=== PATIENT | male | born 1975 ===

== ENCOUNTER 2018-10-01 18:22 | Emergency (ER) | payer OTHER ==
[2018-10-01 18:32] VITALS: BP 137/82
--- NOTE | 2018-10-01 18:41 | UC ---
Skin Complaint HPI - HPI Summary HPI Summary: L hip has large splinter after pt. slid on hardwood floor. Pt unable to remove it. - History of Current Complaint Chief Complaint: UCSkin Time Seen by Provider: 10/01/18 18:26 Stated Complaint: SOFT TISSUE Hx Obtained From: Patient Onset/Duration: Sudden Onset Pain Intensity: 2 Pain Scale Used: 0-10 Numeric Aggravating Factor(s): Touch Alleviating Factor(s): Nothing - Allergy/Home Medications Allergies/Adverse Reactions: Allergies Allergy/AdvReac Type Severity Reaction Status Date / Time No Known Allergies Allergy Verified 10/01/18 18:32 PMH/Surg Hx/FS Hx/Imm Hx Previously Healthy: Yes - Surgical History Surgical History: Yes Surgery Procedure, Year, and Place: inguinal hernia repair - Social History Alcohol Use: Occasionally Substance Use Type: None Smoking Status (MU): Never Smoked Tobacco - Immunization History Most Recent Tetanus Shot: 08/07/2014 Review of Systems All Other Systems Reviewed And Are Negative: Yes Constitutional: Positive: Negative Skin: Positive: Other - Pain at site of splinter Physical Exam Triage Information Reviewed: Yes Appearance: Well-Appearing Vital Signs: Initial Vital Signs Temp 97.7 F 10/01/18 18:27 Pulse 76 10/01/18 18:27 Resp 16 10/01/18 18:27 BP 137/82 10/01/18 18:27 Pulse Ox 96 10/01/18 18:27 Vital Signs Reviewed: Yes Skin: Positive: Other - L hip had a 1 in. somewhat deep splinter but able to be palpated externally. Was able to clean area, drape and inj. lidocaine to be able to remove splinter. Edges had to be cut minimally and Dr. Matos was able to finally remove large splinter whole. Course/Dx - Course Course Of Treatment: Left hip approx 1 in. piece of wood underneath skin. Able to palpate just superficially. Removed.Area was then cleaned and dressed. Empiric tx of skin infxn rx'd. - Differential Diagnoses - Skin Complaint Differential Diagnoses: Foreign Body - Diagnoses Provider Diagnosis: Foreign body in skin, Hip pain, left Discharge - Sign-Out/Discharge Documenting (check all that apply): Patient Departure All imaging exams completed and their final reports reviewed: No Studies - Discharge Plan Condition: Good Disposition: HOME Prescriptions: Sulfamethox/Trimethoprim SS* [Bactrim SS 400/80 TAB*] 1 tab PO BID 3 Days #6 tab Patient Education Materials: Soft Tissue Foreign Body (ED) Referrals: Brock Waddell MD [Primary Care Provider] - Additional Instructions: Please keep area dry and covered until tomorrow evening. supervisor [employer] the antibiotics tomorrow. If area becomes swollen , red, or pus develops please return. - Billing Disposition and Condition Condition: GOOD Disposition: Home
[2018-10-01] MEDS ORDERED: Lidocaine 1%* 5 ML VIAL INJ ONE (18:51)
== END 2018-10-01 19:34 | disposition home or self-care (01) ==
LOC: UCEAST 18:22
DX: S70.252A Superficial foreign body, left hip, initial encounter (principal); W45.8XXA Other foreign body or object entering through skin, initial encounter; Y92.9 Unspecified place or not applicable
CPT/HCPCS: 99202; G0463

== ENCOUNTER 2019-05-17 07:09 | Emergency (ER) | payer OTHER ==
--- NOTE | 2019-05-17 07:16 | UC ---
General HPI - HPI Summary HPI Summary: 44 yo gentleman presents with family c/o bat exposure, advised by [facility] to come in for the vaccine/ rig. Approx 3 weeks ago, a bat was identified in their bedroom. Earlier this week Sunday a bat ran into a ceiling fan, and . Testing indicated neg rabies. However, it was not clear if the bat was the same as the bat that was seen earlier. As such, [facility] Dept encouraged rig / vaccine series. Previously healthy. No precise bite occurence. - History of Current Complaint Stated Complaint: RABIES Time Seen by Provider: 05/17/19 07:13 Hx Obtained From: Patient - Allergy/Home Medications Allergies/Adverse Reactions: Allergies Allergy/AdvReac Type Severity Reaction Status Date / Time No Known Allergies Allergy Verified 05/17/19 07:30 PMH/Surg Hx/FS Hx/Imm Hx Previously Healthy: Yes - Surgical History Surgical History: Yes Surgery Procedure, Year, and Place: inguinal hernia repair - Family History Known Family History: Positive: None - Social History Alcohol Use: Occasionally Substance Use Type: None Smoking Status (MU): Never Smoked Tobacco - Immunization History Most Recent Tetanus Shot: 08/07/2014 Review of Systems All Other Systems Reviewed And Are Negative: Yes Constitutional: Positive: Negative Skin: Positive: Negative Eyes: Positive: Negative ENT: Positive: Negative Respiratory: Positive: Negative Cardiovascular: Positive: Negative Gastrointestinal: Positive: Negative Genitourinary: Positive: Negative Motor: Positive: Negative Neurovascular: Positive: Decreased Sensation Musculoskeletal: Positive: Negative Neurological: Positive: Negative Psychological: Positive: Negative Is Patient Immunocompromised?: No Physical Exam Triage Information Reviewed: Yes Appearance: Well-Appearing, Well-Nourished Vital Signs Reviewed: Yes Eye Exam: Normal ENT Exam: Normal Neck exam: Normal Neck: Positive: Supple, Nontender, No Lymphadenopathy Respiratory Exam: Normal Respiratory: Positive: Chest non-tender, Lungs clear, Normal breath sounds, No respiratory distress, No accessory muscle use Cardiovascular Exam: Normal Cardiovascular: Positive: RRR, No Murmur, Pulses Normal, Brisk Capillary Refill Abdominal Exam: Normal Abdomen Description: Positive: Nontender Musculoskeletal Exam: Normal Neurological Exam: Normal - grossly nonfocal Psychological Exam: Normal - conversing easily and appropriately Course/Dx - Course Course Of Treatment: Reviewed coa / tx plan. Advised to f/u per [facility] Department recommendations. Questions as posed answered to the best of my ability - Diagnoses Provider Diagnosis: Rabies exposure Discharge - Sign-Out/Discharge Documenting (check all that apply): Patient Departure All imaging exams completed and their final reports reviewed: No Studies - Discharge Plan Condition: Stable Disposition: HOME Patient Education Materials: Rabies Vaccine (By injection), Rabies Immune Globulin (By injection) Referrals: Brock Waddell MD [Primary Care Provider] - Additional Instructions: Follow up with your primary care physician, per routine. call the office to schedule routine follow up. Seek medical attention for worse or new problems. Follow the Health Department schedule re subsequent vaccine schedule. Hydrate. - Billing Disposition and Condition Condition: STABLE Disposition: Home
[2019-05-17 07:30] VITALS: BP 138/77
[2019-05-17] MEDS ORDERED: Rabies VIRUS VACCINE (RabAvert)* 2.5 UNITS VIAL IM ONE (07:49)
[2019-05-17] MEDS ORDERED: Rabies Immune Globulin/PF 1ML* 1 ML/300 UNITS VIAL IM ONE (07:50)
== END 2019-05-17 09:18 | disposition home or self-care (01) ==
LOC: UCEAST 07:09
DX: Z29.14 Encounter for prophylactic rabies immune globulin (principal)
CPT/HCPCS: 90375; 90471; 90675; 96372; 99211; G0463